=== PATIENT | female | born 1995 | race Caucasian/White ===

== ENCOUNTER 2017-11-23 15:01 | Emergency (ER) | payer MEDICAID, SELFPAY ==
[2017-11-23 15:02] VITALS: BP 108/66; PULSE 60; RESP 16; TEMP 35.8; BMI 20.1
[2017-11-23 15:47] LABS: Mucous, Urine 0 SEEN /hpf (<or=2+)
[2017-11-23 15:50] LABS: Color, Urine Amber (Yellow); Glucose, Dipstick Normal (Normal); Ketone-Dipstick 50 mg/dl (Negative); Leukocyte Esterase-Dipstick 25 /ul (Negative); Nitrite-Dipstick Positive (Negative); Occult Blood-Urine 250 /ul (Negative); Protein-Dipstick 30 mg/dl (Negative); Specific Gravity, Urine 1.025 (1.002-1.030); Urine Bilirubin Dipstick Negative (Negative); Urine Clarity Sl. Cloudy (Clear); Urine Urobilinogen Normal (Normal)
[2017-11-23 15:55] LABS: Internal QC Validated? YES +Cl - CLEAR BKGD; Pregnancy, Urine Negative Negative
[2017-11-23 16:00] LABS: Bacteria RARE /hpf (None Seen); Red Blood Cells-Urine > 100 SEEN /hpf (0-5); Squamous Epithelial Cells - UA 0-5 SEEN /hpf (5-10); White Blood Cells 0-5 SEEN /hpf (0-5)
--- NOTE | 2017-11-23 16:30 | US_ITS ---
STUDY: ULTRASOUND OF THE FEMALE PELVIS - COMPLETE REASON FOR EXAM: Female, 22 years old. Pelvic pain LMP: 10/31/17 TECHNIQUE: Transabdominal TECHNICAL QUALITY: Adequate. COMPARISON: None. FINDINGS: The uterus is anteverted and is in a midline position. The uterus measures 8.1 x 5.5 x 4.7 cm. Normal uterine cervix. The endometrium measures 4.4 mm in thickness, and is hyperechoic. There is no demonstrated endometrial mass. There is no demonstrated myometrial mass. I.U.D. - The patient does not have an I.U.D. The right ovary is visualized. The right ovary measures 3.1 x 1.8 x 1.5 cm. There is no right ovarian cyst or ovarian mass. There is no visualized right adnexal mass or complex lesion. There is normal arterial and normal venous vascularity. The left ovary is visualized. The left ovary measures 2.9 x 1.9 x 1.8 cm. There is no left ovarian cyst or ovarian mass. There is no visualized left adnexal mass or complex lesion. There is normal arterial and normal venous vascularity. There is no fluid in the cul-de-sac. Grossly normal bladder contour. US/Pelvic (Non ) IMPRESSION: Normal female pelvis. Electronically Signed: Fede Schwarz MD at 17:11 EDT , Service support ,
[2017-11-23 17:34] VITALS: BP 112/83; PULSE 87; RESP 14; O2SAT 98
--- NOTE | 2017-11-23 17:54 | ED.VISSUMM ---
- ER Visit Summary Date of Service: 11/23/17 Chief Complaint: Pelvic pain and vaginal bleeding History of Present Illness: The patient is a 22 F who is currently on her menstrual period. She is not sexually active. She reports that about 2 hours ago she had severe LV cramping which was 10 out of 10. She took ibuprofen with significant relief and currently complains of only mild pain which she rates as 5 out of 10. She states that she is not bleeding any heavier than her normal.. She has no other discharge. She denies any urinary symptoms such as dysuria frequency or urgency. She had nausea while her pain was severe but this has also since resolved. Physical Examination: Afebrile vitals are stable Moist mucous membranes Heart regular rate and rhythm Lungs are clear Abdomen soft nontender nondistended Pelvic exam shows mild active bleeding no cervical motion tenderness adnexal mass or tenderness Test Results: UA shows 25 leukocyte esterase positive nitrates but 0-5 WBCs and only rare bacteria. is negative. Pelvic ultrasound is normal. Emergency Department Course and Treatment: Declined any medications here as her symptoms had significantly improved. Her ultrasound shows no acute abnormality. She was advised to use anti-inflammatories as needed and was referred to ZONE MAINTENANCE TECHNICIAN for follow-up. She understands to return for new or worsening symptoms. All questions answered bedside. Patient discharged. Treatment Plan: [] Disposition: Discharge Impression: Dysmenorrhea This note was generated with [employer] dictation software. It may contain incorrect words, spelling, and punctuation that were not noted in review of the chart prior to signing ED Disposition - Plan for ED Patient: Chief Complaint: Abd Pain Referrals: Care Physician,No Primary [Primary Care Provider] -
--- NOTE | 2017-11-23 17:57 | ED.DCSUM_ITS ---
- ER Visit Summary Date of Service: 11/23/17 Chief Complaint: Pelvic pain and vaginal bleeding History of Present Illness: The patient is a 22 F who is currently on her menstrual period. She is not sexually active. She reports that about 2 hours ago she had severe LV cramping which was 10 out of 10. She took ibuprofen with significant relief and currently complains of only mild pain which she rates as 5 out of 10. She states that she is not bleeding any heavier than her normal.. She has no other discharge. She denies any urinary symptoms such as dysuria frequency or urgency. She had nausea while her pain was severe but this has also since resolved. Physical Examination: Afebrile vitals are stable Moist mucous membranes Heart regular rate and rhythm Lungs are clear Abdomen soft nontender nondistended Pelvic exam shows mild active bleeding no cervical motion tenderness adnexal mass or tenderness Test Results: UA shows 25 leukocyte esterase positive nitrates but 0-5 WBCs and only rare bacteria. is negative. Pelvic ultrasound is normal. Emergency Department Course and Treatment: Declined any medications here as her symptoms had significantly improved. Her ultrasound shows no acute abnormality. She was advised to use anti-inflammatories as needed and was referred to INFORMATION TECHNOLOGY ANALYST for follow-up. She understands to return for new or worsening symptoms. All questions answered bedside. Patient discharged. Treatment Plan: [] Disposition: Discharge Impression: Dysmenorrhea This note was generated with [employer] dictation software. It may contain incorrect words, spelling, and punctuation that were not noted in review of the chart prior to signing ED Disposition - Plan for ED Patient: Chief Complaint: Abd Pain Referrals: Care Physician,No Primary [Primary Care Provider] -
--- NOTE | 2017-11-23 17:57 | ED.DEP ---
ED Disposition - Plan for ED Patient: Chief Complaint: Abd Pain Instructions: ED Cramping Menstrual Referrals: Care Physician,No Primary [Primary Care Provider] - Barbara Ford MD [STAFF PHYSICIAN] -
[2017-11-23 18:06] VITALS: BP 119/78; PULSE 75; RESP 14; O2SAT 99
== END 2017-11-23 18:08 | disposition home or self-care (01) ==
PROVIDERS: Emergency Provider Emergency Medicine
DX: N94.6 Dysmenorrhea, unspecified (principal)
CPT/HCPCS: 76856; 81001; 81025; 87086; 87088; 93976; 99282